=== PATIENT | female | born 1980 | race Caucasian/White ===

== ENCOUNTER 2018-06-26 17:13 | Emergency (ER) | payer OTHER ==
[~2018-06-26] VITALS: Ht 165.1 cm; Wt 66.2 kg
[~2018-06-26 17:13] MED LIST: KETO10TA2 PO; ORPH100T PO; SYNTHROID50 MCG
== END 2018-06-26 22:44 | disposition home or self-care (01) ==
LOC: ER 17:13
DX: M62.838 Other muscle spasm (principal); M62.830 Muscle spasm of back

== ENCOUNTER 2020-08-05 14:00 | Outpatient (CLI) | payer OTHER | END 2020-08-05 14:09 | disposition home or self-care (01) | LOC: RAD 14:00 | PROVIDERS: ATTEND Family Medicine | DX: M41.85 Other forms of scoliosis, thoracolumbar region (principal); M54.2 Cervicalgia; M54.6 Pain in thoracic spine; M54.40 Lumbago with sciatica, unspecified side; M41.40 Neuromuscular scoliosis, site unspecified ==

== ENCOUNTER 2021-02-04 13:09 | Outpatient (CLI) | payer OTHER | END 2021-02-04 13:24 | disposition home or self-care (01) | LOC: MAMO-SONO 13:09 | PROVIDERS: ATTEND Family Medicine | DX: Z12.31 Encounter for screening mammogram for malignant neoplasm of breast (principal); N64.59 Other signs and symptoms in breast; Z13.820 Encounter for screening for osteoporosis ==

== ENCOUNTER 2023-08-14 10:47 | Emergency (ER) | payer OTHER ==
[~2023-08-14] VITALS: Ht 165.1 cm; Wt 68.0 kg
[2023-08-14] MEDS ORDERED: DICLOFENAC SODI75 MG PO (14:16)
== END 2023-08-14 14:29 | disposition home or self-care (01) ==
LOC: ER 10:47
DX: R07.89 Other chest pain (principal)

== ENCOUNTER 2025-07-14 09:03 | Emergency (ER) | payer OTHER ==
[~2025-07-14] VITALS: Ht 165.1 cm; Wt 65.8 kg
[~2025-07-14 09:03] MED LIST changes: +DICLOFENAC SODI75 MG PO
[2025-07-14] MEDS ORDERED: KETOROLAC TROMETHAMINE 60 MG VIAL IM ONE ×2 (11:06→11:15)
[2025-07-14] MEDS ORDERED: DEXAMETHASONE SODIUM PHOSPHATE 4 MG/ML VIAL ONE (11:06)
[2025-07-14] MEDS ORDERED: ACETAMINOPHEN 500 MG GEL..CAP PO ONE (11:06)
[2025-07-14] MEDS ORDERED: ACETAMINOPHEN 325 MG TABLET PO ONE (11:15)
[2025-07-14] MEDS ORDERED: DEXAMETHASONE SODIUM PHOSPHATE 4 MG/ML VIAL IM ONE (11:15)
[2025-07-14 12:09] LABS: BASO % 0.3 % (0.1-1.2); EOS # 0.01 (0.04-0.54); EOS % 0.3 % (0.7-7.0); LYMPH # 0.63 (1.18-3.74); LYMPH % 21.1 % (19.3-53.1); MEAN PLATELET VOLUME 10.70 fl (9.4-12.4); MONO # 0.44 (0.24-0.82); NEUT # 1.89 (1.56-6.13); NEUT % 63.3 % (34.0-71.1); RED CELL DISTRIBUTION WIDTH 12.8 % (11.6-14.4)
[2025-07-14 12:17] LABS: MONO % 14.7 % (4.7-12.5)
[2025-07-14 13:15] LABS: COVID-19 AG NEGATIVE (NEGATIVE)
[2025-07-14] MEDS ORDERED: ZITHROMAX500 MG PO (13:48)
== END 2025-07-14 14:14 | disposition home or self-care (01) ==
LOC: ER 09:04
DX: B34.9 Viral infection, unspecified (principal); Z20.822 Contact with and (suspected) exposure to COVID-19